=== PATIENT | female | born 1980 | race African-American/Black ===

== ENCOUNTER 2017-04-11 08:25 | Emergency (ER) | payer OTHER ==
[~2017-04-11] VITALS: Ht 170.2 cm; Wt 80.9 kg
[2017-04-11] MEDS ORDERED: ALBU17IN INH (09:46)
[2017-04-11] MEDS ORDERED: PRED20TA PO (09:46)
[2017-04-11] MEDS ORDERED: CLAR1TAB2 PO (09:46)
[2017-04-11] MEDS ORDERED: AUGM875T28 PO (09:46)
[2017-04-11] MEDS ORDERED: MUCI600T37 PO (09:46)
--- NOTE | 2017-04-11 09:47 | REP ---
Chest two views HISTORY: Cough Comparison: None The lungs are clear. The heart is normal in size. The pulmonary vasculature is normal in appearance. The bony structure is intact. IMPRESSION: No acute disease. Signed by Jas Taylor MD 04/11/2017 09:39 A
[2017-04-11 09:49] VITALS: BP 109/70
[2017-04-11] MEDS ORDERED: AUGMENTIN 875 MG TAB PO ONE (10:00)
== END 2017-04-11 10:01 | disposition home or self-care (01) ==
LOC: M ED 08:25
DX: J01.90 Acute sinusitis, unspecified (principal); J20.9 Acute bronchitis, unspecified; I35.1 Nonrheumatic aortic (valve) insufficiency; Z86.711 Personal history of pulmonary embolism

== ENCOUNTER → 2017-11-19 | Outpatient (REF) | payer OTHER | LOC: M SFHCLERA 12:51 | DX: R68.89 Other general symptoms and signs (principal); R50.9 Fever, unspecified | CPT/HCPCS: 87633 ==

== ENCOUNTER 2017-12-11 16:17 | Emergency (ER) | payer OTHER ==
[2017-12-11 18:57] LABS: BASO % 0.7 % (0.0-1.0); EOS # 0.1 10^3/uL (0.0-0.50); EOS % 1.1 % (0.0-3.0); HEMATOCRIT 39.1 % (36.0-47.0); HEMOGLOBIN 12.5 g/dl (12.0-16.0); IMMATURE GRANULOCYTE % 0.2 % (0-3.0); LYMPH # 2.1 10^3/uL (1.5-4.5); LYMPH % 38.6 % (24.0-44.0); MEAN CORPUSCULAR HEMOGLOBIN 23.4 pg (27.0-33.0); MEAN CORPUSCULAR VOLUME 73.1 fl (80.0-96.0); MONO # 0.4 10^3/uL (0.0-0.8); MONO % 6.6 % (0.0-5.0); NEUTROPHILS # 2.9 10^3/uL (1.8-7.7); NEUTROPHILS % 52.8 % (36.0-66.0); PLATELET COUNT, AUTOMATED 316 10^3/uL (150-450); RED BLOOD COUNT 5.35 10^6/uL (4.00-5.40); RED CELL DISTRIBUTION WIDTH 14.3 % (11.5-14.5); WHITE BLOOD COUNT 5.4 10^3/uL (4.0-10.0)
[2017-12-11 19:29] LABS: ERYTHROCYTE SEDIMENTATION RATE 4 mm/hr (0-20)
[2017-12-11 19:31] LABS: ALBUMIN 4.1 GM/DL (3.2-5.2); ALBUMIN/GLOBULIN RATIO 1.11 (1.00-1.93); ALKALINE PHOSPHATASE 53 U/L (45-117); ALT/SGPT 17 U/L (12-78); ANION GAP 8 MEQ/L (8-16); AST/SGOT 13 U/L (7-37); BILIRUBIN,DIRECT 0.1 MG/DL (0.0-0.2); BILIRUBIN,TOTAL 0.4 MG/DL (0.2-1.0); BLOOD UREA NITROGEN 9 MG/DL (7-18); C REACTIVE PROTEIN QUANTITATIV < 0.30 MG/DL (0.00-0.30); CALCIUM LEVEL 8.9 MG/DL (8.5-10.1); CARBON DIOXIDE LEVEL 29 MEQ/L (21-32); CHLORIDE LEVEL 103 MEQ/L (98-107); CPK CREATINE PHOSPHOKINASE 149 U/L (26-192); GLOMERULAR FILTRATION RATE > 60.0 (>60); GLUCOSE, FASTING 102 MG/DL (70-100); POTASSIUM SERUM 3.8 MEQ/L (3.5-5.1); SODIUM LEVEL 140 MEQ/L (136-145); TOTAL PROTEIN 7.8 GM/DL (6.4-8.2)
== END 2017-12-11 20:13 | disposition home or self-care (01) ==
LOC: M ED 16:17
DX: M79.604 Pain in right leg (principal); M79.605 Pain in left leg; Z95.2 Presence of prosthetic heart valve; K86.2 Cyst of pancreas; D56.3 Thalassemia minor; Z86.711 Personal history of pulmonary embolism; Z79.899 Other long term (current) drug therapy
CPT/HCPCS: 82550

== ENCOUNTER → 2018-04-07 | Outpatient (CLI) | payer OTHER ==
[~2018-04-07] MED LIST: PROHANCE 279.3MG/ML 15ML VIAL (A9576) As Ordered; PROHANCE 279.3MG/ML 5ML VIAL (A9576) As Ordered
== END ==
LOC: M RAD 16:34
DX: M71.341 Other bursal cyst, right hand (principal)
CPT/HCPCS: A9576

== ENCOUNTER 2018-05-24 07:19 | Emergency (ER) | payer OTHER ==
[2018-05-24] MEDS: METHOCARBAMOL 500 MG TAB PO (08:00)
[2018-05-24] MEDS: KETOROLAC 60 MG/2 ML VIAL (J1885) IM (08:00)
== END 2018-05-24 08:31 | disposition home or self-care (01) ==
LOC: M ED 07:19
DX: R51 Headache (principal); S46.811A Strain of other muscles, fascia and tendons at shoulder and upper arm level, right arm, initial encounter; S46.812A Strain of other muscles, fascia and tendons at shoulder and upper arm level, left arm, initial encounter; X58.XXXA Exposure to other specified factors, initial encounter; Y92.89 Other specified places as the place of occurrence of the external cause; D56.9 Thalassemia, unspecified
CPT/HCPCS: J1885

== ENCOUNTER → 2018-12-12 | Outpatient (CLI) | payer OTHER ==
[~2018-12-12] MED LIST changes: +ALBU17IN INH; +AUGM875T28 PO; +CLAR1TAB2 PO; +COLA100C5 PO; +IBUP80TA PO; +KETO10TAB PO; +MUCI600T37 PO; +PRED20TA PO; -PROHANCE 279.3MG/ML 15ML VIAL (A9576) As Ordered; -PROHANCE 279.3MG/ML 5ML VIAL (A9576) As Ordered; +ROBA500T PO; +VITAD1000T PO
--- NOTE | 2018-12-15 08:43 | REP ---
MRI ABDOMEN WITHOUT AND WITH CONTRAST: 12/12/2018. Comparison: CT abdomen and pelvis without contrast 10/21/2018 at [facility]. Clinical history: Abdominal pain, a cystic lesion adjacent to the tail of the pancreas on noncontrast CT. For further evaluation. Technique: Coronal T1, axial dual echo, in and out of phase, T2 with fat suppressed T2 sequences and gradient echo sequence. After infusion of 15 mL of ProHance, dynamic axial gradient echo scanning with coronal gradient echo fat suppressed sequence also obtained. Findings: On the coronal and axial T2 images there is a elongated slightly lobulated lesion 6.2 cm in maximum length with maximum AP transverse diameters of 2.5 and 2.3 cm. It abuts the posterior aspect of the tail of the pancreas and adjacent displacement of the lateral limb of the left adrenal gland noted. Although lobulated the margins are sharply defined. I do not see signal abnormality on the T2 images within the pancreas or adrenal gland itself I do not see abnormal dilatation of the pancreatic duct. There is no peripancreatic adenopathy or other mass. There are some slight septations suggested on the T2 images, but no abnormal enhancement on the gadolinium images noted within or adjacent to the lesion. No enhancing rind. The body, neck and head of the pancreas showed no adjacent mass. There is no other fluid collection. The liver is homogeneous and shows no signal drop off on the in and out of phase images to suggest fatty infiltration. Likewise this lesion shows no signal drop off and is hypointense to the liver and spleen on the T1 images. Adrenal glands are normal in signal and out of phase images. Kidneys show a few tiny cysts but no solid mass, hydronephrosis or perinephric fluid. The aorta is intact. No periaortic, retroperitoneal or other intra-abdominal adenopathy visible. Bone marrow visible was grossly unremarkable. Colon and small bowel loops grossly intact as well. There are no pericolonic or mesenteric inflammatory changes on the T2 images. No solid organ abnormal enhancement. The pancreas had a homogeneous appearance on all of the enhanced images. Impression: 1. A 6.2 x 2.5 x 2.3 cm elongated lobulated but sharply circumscribed cystic area with this lesion abutting the posterior margin of the tail of the pancreas and the lateral limb of the left adrenal gland. It does not grossly invade the adrenal gland and I suspect origin from the pancreas based on its appearance and position. The finding may reflect a pseudocyst, other peripancreatic cyst or cystic neoplasm. It does not show any enhancement and does have a few of septations suggested on the T2 images, but these are not visible on the enhanced images. No enhancing rind nor any other significant abnormality such as adenopathy, other cystic masses or fluid collection, solid organ abnormalities in the liver, spleen, kidneys or right adrenal gland. The left adrenal gland shows no mass, but does have mass effect against it. Short interval followup would be recommended, another MRI in 3 months. Electronically Signed by Jamaal Brooks MD 12/15/2018 07:37 P
== END ==
LOC: M RAD 14:58
PROVIDERS: ATTEND Internal Medicine
DX: K86.89 Other specified diseases of pancreas (principal); N28.1 Cyst of kidney, acquired

== ENCOUNTER → 2019-03-13 | Outpatient (REF) | payer OTHER | LOC: M SFHCLERA 19:36 | PROVIDERS: ATTEND Nurse Practitioner Family | DX: J02.9 Acute pharyngitis, unspecified (principal) ==

== ENCOUNTER 2019-05-19 13:23 | Emergency (ER) | payer OTHER ==
[~2019-05-19] VITALS: Ht 170.2 cm; Wt 82.4 kg
[2019-05-19 13:23] VITALS: BP 106/72
[~2019-05-19 13:23] MED LIST changes: +VITA500045 PO
[2019-05-19] MEDS ORDERED: ANUS2.5C2 TOP (15:09)
[2019-05-19] MEDS ORDERED: SENN1TAB8 PO (15:12)
== END 2019-05-19 15:23 | disposition home or self-care (01) ==
LOC: M ED 13:23
DX: K59.00 Constipation, unspecified (principal); K64.8 Other hemorrhoids

== ENCOUNTER 2019-08-05 08:22 | Day surgery (SDC) | payer OTHER ==
[~2019-08-05] VITALS: Ht 170.2 cm; Wt 85.3 kg
[~2019-08-05 08:22] MED LIST changes: +ANUS2.5C2 TOP; +CHOL100029 PO; +NO ITAB PO; +NS 1,000 ML IV ONE; +SENN1TAB8 PO; -VITAD1000T PO
[2019-08-05] MEDS ORDERED: PROPOFOL 200 MG/20 ML VIAL As Ordered ONE (08:27)
[2019-08-05] MEDS ORDERED: LIDOCAINE 2% INJ 100 MG/5 ML SDV (FOR ANES.) As Ordered ONE (08:27)
--- NOTE | 2019-08-05 09:48 | ROOR ---
Patient Name: Mayi Arce Procedure Date: 08/05/2019 9:25 AM Date of : 1980 Age: 39 Room: [facility] Gender: Female Note Status: Finalized Procedure: Colonoscopy Indications: Hematochezia, Suspected hemorrhoids Providers: DO Sho Knutson MD: ADRIANNE SILVER MD Requesting Provider: Medicines: Propofol per Anesthesia Complications: No immediate complications. Procedure: Pre-Anesthesia Assessment: - Prior to the procedure, a History and Physical was performed, and patient medications and allergies were reviewed. The patient is competent. The risks and benefits of the procedure and the sedation options and risks were discussed with the patient. All questions were answered and informed consent was obtained. Patient identification and proposed procedure were verified by the physician, the nurse, the anesthesiologist and the residential gas heat technician in the endoscopy suite. Mental Status Examination: alert and oriented. Airway Examination: normal oropharyngeal airway and neck mobility. Respiratory Examination: clear to auscultation. CV Examination: normal. ASA Grade Assessment: II - A patient with mild systemic disease. After reviewing the risks and benefits, the patient was deemed in satisfactory condition to undergo the procedure. The anesthesia plan was to use monitored anesthesia care (MAC). Immediately prior to administration of medications, the patient was re-assessed for adequacy to receive sedatives. The heart rate, respiratory rate, oxygen saturations, blood pressure, adequacy of pulmonary ventilation, and response to care were monitored throughout the procedure. The physical status of the patient was re-assessed after the procedure. The Colonoscope was introduced through the anus and advanced to the cecum, identified by appendiceal orifice and ileocecal valve. The colonoscopy was performed without difficulty. The patient tolerated the procedure well. Findings: Hemorrhoids were found on perianal exam. Non-bleeding internal hemorrhoids were found during retroflexion. The hemorrhoids were Grade II (internal hemorrhoids that prolapse but reduce spontaneously). Two bands were successfully placed in the rectum. A slow ooze remained at the end of the procedure. Estimated blood loss was minimal. The exam was otherwise without abnormality on direct and retroflexion views. Impression: - Hemorrhoids found on perianal exam. - Non-bleeding internal hemorrhoids. - The examination was otherwise normal on direct and retroflexion views. - Two bands were successfully placed in the rectum. - No specimens collected. Recommendation: - Patient has a contact number available for emergencies. The signs and symptoms of potential delayed complications were discussed with the patient. Return to normal activities tomorrow. Written discharge instructions were provided to the patient. - Repeat colonoscopy at age 52 for screening purposes. - Return to my office as previously scheduled. Selvin Jernigan DO 08/05/2019 9:48:10 AM Electronically signed by Selvin Jernigan DO Number of Addenda: 0 Note Initiated On: 08/05/2019 9:25 AM Estimated Blood Loss: Estimated blood loss was minimal.
[2019-08-05 10:17] VITALS: BP 119/71
== END 2019-08-05 10:19 | disposition home or self-care (01) ==
LOC: M OPP 08:22
PROVIDERS: ATTEND Surgery
DX: K64.4 Residual hemorrhoidal skin tags (principal); K92.1 Melena